=== PATIENT | male | born 1990 | race Caucasian/White ===

== ENCOUNTER 2017-04-30 23:51 | Emergency (ER) | payer BC, OTHER ==
[~2017-04-30] VITALS: Ht 182.9 cm; Wt 106.1 kg
[2017-04-30 23:54] VITALS: Ht 182.9 cm; Wt 106.1 kg
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
--- NOTE | 2017-05-01 01:29 | RADRPT ---
PROCEDURE: CT facial bones CLINICAL INDICATION: Facial pain TECHNIQUE: A CT of the facial bones was performed utilizing high-resolution axial images. Sagitta l, coronal, and multiplanar reformatted images were made. Additionally, 3-D reformatted images were made. The CTDIvol is 29.51 mGy and the DLP is 611.43 mGy-cm. DICOM images are available. One or more of the following dose reduction techniques were utilized: 1.) Automated exposure control 2.) Adjustment of the mA +/- kV according to patient's size 3.) Use of iterative reconstruction technique. COMPARISON: None. FINDINGS: The osseous structures are intact with no evidence of fracture. Mild septal deviation to the right The orbits, as visualized, appear intact. The overlying soft tissues are grossly unremarkable. Mod erate right maxillary sinusitis with mucosal thickening. Mucous retention cyst in the left maxillary sinus. Near-complete opacification of the ethmoid air cells. Moderate sphenoid sinusitis. Mild to m oderate right frontal sinusitis. IMPRESSION: 1. Bilateral sinusitis, greater in the right maxillary and sphenoid sinuses, and findings are right greater than left. 2. Otherwise, no evident acute fracture. RPTAT: [facility] Physician Sony Date Time Electronically viewed and signed by Physician Sony on 05/01/2017 01:29 RS/
[2017-05-01] MEDS ORDERED: IBUP-1542 PO (01:40)
[2017-05-01] MEDS ORDERED: AMOX1TAB10 PO (01:40)
[2017-05-01] MEDS ORDERED: FLUT9.9S NASAL (01:40)
[2017-05-01] MEDS ORDERED: HYDR-906 PO (01:40)
[2017-05-01] MEDS ORDERED: CETI10CA PO (01:40)
[2017-05-01 01:53] VITALS: BP 130/74; PULSE 59; RESP 16; TEMP 97.8
== END 2017-05-01 01:55 | disposition home or self-care (01) ==
LOC: FTE 23:51
DX: J01.00 Acute maxillary sinusitis, unspecified (principal); S00.83XA Contusion of other part of head, initial encounter; W22.8XXA Striking against or struck by other objects, initial encounter; Y92.9 Unspecified place or not applicable
CPT/HCPCS: 70486